=== PATIENT | female | born 1975 | race African-American/Black ===

== ENCOUNTER 2024-11-29 09:55 | Emergency (ER) | payer OTHER ==
[~2024-11-29] VITALS: Ht 165.1 cm; Wt 80.0 kg
[2024-11-29 09:57] VITALS: O2SAT 100
[2024-11-29] MEDS: HYDROCODONE/ACETAMINOPHEN 5/325MG TABLET PO ONE ×2 (10:24→12:44)
[2024-11-29] MEDS ORDERED: T3 PO (12:19)
[2024-11-29] MEDS ORDERED: CYCL10TA21 MT (12:19)
[2024-11-29 12:44] VITALS: BP 132/69; PULSE 74; RESP 18; TEMP 36.9; O2SAT 99
== END 2024-11-29 12:59 | disposition home or self-care (01) ==
LOC: ER 09:55
DX: S09.8XXA Other specified injuries of head, initial encounter (principal); E11.9 Type 2 diabetes mellitus without complications; Z88.6 Allergy status to analgesic agent; D64.9 Anemia, unspecified; V49.9XXA Car occupant (driver) (passenger) injured in unspecified traffic accident, initial encounter; Y93.89 Activity, other specified; Y99.8 Other external cause status; Y92.410 Unspecified street and highway as the place of occurrence of the external cause
CPT/HCPCS: 72131; 73502; 73560; 73610; 99284